=== PATIENT | female | born 1980 | race Caucasian/White ===

== ENCOUNTER → 2021-06-11 | Outpatient (CLI) | payer OTHER, BC ==
[~2021-06-11] MED LIST: ACHYD1T PO; DCS100C PO; FLUO20CA25 PO; IBP800T PO; METR500T PO
--- NOTE | 2021-06-11 09:07 | Diagnostic Imaging Report ---
INDICATION: Follow-up wrist fracture. TIME OF EXAM: 8:50 AM No prior studies are available for comparison. Overlying cast material does obscure bone detail. There does appear to be a fracture of the distal radius best seen on lateral view along the dorsal cortex. Lucency persists. Overall alignment appears anatomic. Carpal bones are intact. Metacarpals are intact. IMPRESSION: Nondisplaced distal radius fracture. Fracture line remains clearly visible. Dictated by: Dictated on workstation # [id number]
== END ==
LOC: RAD FS 08:34
PROVIDERS: ATTEND Nurse Practitioner
DX: S52.514D Nondisplaced fracture of right radial styloid process, subsequent encounter for closed fracture with routine healing (principal); X58.XXXD Exposure to other specified factors, subsequent encounter
CPT/HCPCS: 73110

== ENCOUNTER → 2021-06-23 | Outpatient (CLI) | payer OTHER, BC ==
--- NOTE | 2021-06-23 11:47 | Diagnostic Imaging Report ---
INDICATION: Followup right wrist fracture. TIME OF EXAM: 11:29 AM. COMPARISON: Correlation is made with the prior radiograph from 06/11/2021. FINDINGS: Cast material has been removed. There is a healing distal radius fracture. There is some sclerosis and some blurring at the fracture line but the fracture line does remain partially visible. This does appear to extend to the articular surface. The carpus is intact. The metacarpals are unremarkable. The distal ulna is intact. IMPRESSION: Healing distal radius fracture demonstrating near-anatomic alignment. Dictated by: Dictated on workstation # [id number]
== END ==
LOC: RAD FS 11:17
PROVIDERS: ATTEND Nurse Practitioner
DX: S52.514D Nondisplaced fracture of right radial styloid process, subsequent encounter for closed fracture with routine healing (principal); X58.XXXD Exposure to other specified factors, subsequent encounter
CPT/HCPCS: 73110

== ENCOUNTER → 2021-07-23 | Outpatient (CLI) | payer OTHER, BC ==
--- NOTE | 2021-07-23 09:11 | Diagnostic Imaging Report ---
Indication: Radial styloid fracture follow-up AP, oblique, and lateral views of the right wrist are obtained and compared with 06/23/2021. There is further healing of the radial styloid fracture compared to the prior study, with some mild residual lucency. There is no change in alignment. The remaining bony structures appear unremarkable. IMPRESSION: Well aligned healing fracture of radial styloid. Dictated by: Dictated on workstation # [id number]
== END ==
LOC: RAD FS 08:33
PROVIDERS: ATTEND Nurse Practitioner
DX: S52.514D Nondisplaced fracture of right radial styloid process, subsequent encounter for closed fracture with routine healing (principal); X58.XXXD Exposure to other specified factors, subsequent encounter
CPT/HCPCS: 73110